=== PATIENT | female | born 1990 | race Caucasian/White ===

== ENCOUNTER 2016-02-28 01:54 | Emergency (ER) | payer OTHER ==
[~2016-02-28] VITALS: Ht 167.6 cm; Wt 85.6 kg
[~2016-02-28 01:54] MED LIST: Z.0.NO CURRENT MEDS
[2016-02-28 02:00] VITALS: BP 123/87; PULSE 110; RESP 16; TEMP 98.3; O2SAT 100
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
[2016-02-28] MEDS ORDERED: KETOROLAC TROMETHAMINE 60 MG/2 ML (IM) VIAL IM ONE (03:15)
[2016-02-28] MEDS ORDERED: IBUP-232 PO (03:44)
[2016-02-28] MEDS ORDERED: PERC5TAB12 PO (03:44)
--- NOTE | 2016-02-28 04:42 | RADHPO ---
EXAM DATE/TIME: 02/28/2016 03:13 [facility] COMPARISON: No previous studies available for comparison. INDICATIONS : Left lower leg pain. MEDICAL HISTORY : None. SURGICAL HISTORY : None. ENCOUNTER: Initial ACUITY: 2 days PAIN SCORE: 3/10 LOCATION: Left lower leg FINDINGS: Two view examination of the left tibia demonstrates no evidence of fracture or dislocation. Bony min eralization is normal. The soft tissue structures are intact. On the lateral view there is a questio nable density either on or just in the soft tissues along the plantar surface of the foot underneath the calcaneus. CONCLUSION: 1. No acute fracture or joint dislocation. 2. Questionable radiopaque linear foreign body either on or just in the skin along the plantar surfac e underneath the calcaneus. Correlate with physical exam. Ant Arreola MD on February 28, 2016 at 4:38 Board Certified Radiologist. This report was verified electronically.
--- NOTE | 2016-02-28 04:42 | RADHPO ---
EXAM DATE/TIME: 02/28/2016 03:15 [facility] COMPARISON: No previous studies available for comparison. INDICATIONS : Left ankle pain. MEDICAL HISTORY : None. SURGICAL HISTORY : None. ENCOUNTER: Initial ACUITY: 2 days PAIN SCORE: 4/10 LOCATION: Left ankle FINDINGS: Three view exam was performed of the left ankle. The bony structures are in normal alignment. No ev idence of fracture, dislocation, or soft tissue swelling. The ankle mortise is intact. No radiopaqu e foreign bodies are seen. Bony mineralization is normal. CONCLUSION: Normal examination for a patient of this age. Ant Arreola MD on February 28, 2016 at 4:41 Board Certified Radiologist. This report was verified electronically.
[2016-02-28 05:09] VITALS: BP 147/72
== END 2016-02-28 05:11 | disposition home or self-care (01) ==
LOC: PHED 01:54
DX: S90.02XA Contusion of left ankle, initial encounter (principal); S80.12XA Contusion of left lower leg, initial encounter; F17.210 Nicotine dependence, cigarettes, uncomplicated; V19.9XXA Pedal cyclist (driver) (passenger) injured in unspecified traffic accident, initial encounter; Y93.55 Activity, bike riding; Y92.9 Unspecified place or not applicable
CPT/HCPCS: 73590; 73610; 96372; 99283; J1885

== ENCOUNTER 2016-10-20 05:46 | Emergency (ER) | payer MEDICAID, OTHER ==
[~2016-10-20 05:46] MED LIST changes: +IBUP-232 PO; +PERC5TAB12 PO; -Z.0.NO CURRENT MEDS
--- NOTE | 2016-10-20 07:10 | PD ---
HPI Chief Complaint Possible labor she says her doctor told her to [facility] to be checked and she came here by mistake Date Seen: Oct 20, 2016 Time Seen: 07:00 Travel History International Travel<30 Days: No Contact w/Intl Traveler<30Days: No Known Affected Area: No History of Present Illness HPI This is 26-year-old white female at 37 weeks tomorrow who is followed by an outside physician and has not registered for here at [place] who presented here for evaluation of possible labor and being breech and wondering if there is always do a version, patient was supposed [facility] her doctor told her to go there but she mistakenly came here. She says she's having some contractions and was wondering if she was in labor and she knew she was breech. heart rate is reactive and dictated she is not norma regularly on the monitor. Weeks Gestation: 37 Para: 0 : 1 History Social History Alcohol Use: No Tobacco Use: No Substance Abuse: No Allergies-Medications (Allergen,Severity, Reaction): Coded Allergies: prochlorperazine (Unverified Allergy, Intermediate, 09/19/16) Home Meds Active Scripts Oxycodone-Acetaminophen (Percocet) 5-325 mg Tab, 1 TAB PO Q4H Y for PAIN, #15 TAB 0 Refills Prov:Valente Sinha MD 02/28/16 Ibuprofen (Ibuprofen) 600 Mg Tab, 600 MG PO TID for Arthritis Pain, #45 TAB 0 Refills Prov:Valente Sinha MD 02/28/16 Review of Systems General / Constitutional: No: Fever, Weight Gain, Chills, Other Eyes: No: Diploplia, Blurred Vision, Visual changes, Pain, Photophobia HENT: No: Headaches, Vertigo, Lightheadedness Cardiovascular: No: Irregular Rhythm, Chest Pain or Discomfort, Palpitations, Tachycardia, Syncope, Varicosities, Edema, Cyanosis Respiratory: No: Cough, Short of Breath, Other Gastrointestinal: No: Nausea, Vomiting, Diarrhea Genitourinary: No: Decreased Urinary Output, Oliguria Musculoskeletal: No: Limited ROM, Weakness, Cramping, Edema, Pain Skin: No Rash, No Itching, No Dryness, No Lumps, No Change in Pigmentation, No Change in Nails, No Alopecia, No Lesions Neurologic: No: Weakness, Dizziness, Syncope, Focal Abnormalities, Coordination Problem, Headache, Slurred Speech, Seizures Psychiatric: No: Depression, Suicidal Ideations, Homicidal Ideation Endocrine: No: Heat Intolerance, Cold Intolerance, Polydipsia, Polyuria, Other Physical Exam Narrative GENERAL: Well-nourished, obese patient. SKIN: Warm and dry. HEAD: Normocephalic and atraumatic. EYES: No scleral icterus. No injection or drainage. ENT: No nasal drainage noted. Mucous membranes pink. Airway patent. NECK: Supple, trachea midline. No JVD. CARDIOVASCULAR: Regular rate and rhythm without murmurs, gallops, or rubs. RESPIRATORY: Breath sounds equal bilaterally. No accessory muscle use. BREASTS: Bilateral exam showed no masses , no retractions, no nipple discharge. ABDOMEN/GI: Abdomen soft, non-tender, bowel sounds present, no rebound, no guarding Gravid to [37-] weeks size Fundal Height: [37-] GENITOURINARY: External Genitalia: intact and normal in appearance BUS glands: [-] Cervix: [-Posterior] Dilatation: [1-] Effacement: [-50] Station: [-3] Presentation: [Complete breech by ultrasound-] Membranes: [intact ] Uterine Contractions: [Occasional-] FHT's: Category: [1-] Baseline: [-133] Reactive: [yes-] Variability: [mod-] Decels: [-none] EXTREMITIES: No cyanosis or edema. BACK: Nontender without obvious deformity. No CVA tenderness. NEUROLOGICAL: Awake and alert. Motor and sensory grossly within normal limits. Five out of 5 muscle strength in all muscle groups. Normal speech. Data Data Labs Bedside ultrasound confirms patient's complete breech presentation MDM Interpretation(s) Patient is 26-year-old white female at 37 weeks tomorrow mistakenly presented here for evaluation of her breech and possible contractions. She was supposed to go to [facility] her doctor wanted her to go there he is an outside physician from this system and facility. She is not in labor at this time cervix 1 cm 50% -3 baby's incomplete breech presentation by bedside ultrasound heart rate tracing is reactive and she is only occasionally norma. Patient is not a good candidate for attempted version due to body habitus and the inability to palpate the fetus well Plan [place] discharged home and have her follow-up with her doctor in her hospital Diagnosis Diagnosis: Primary Impression: Uterine contractions during Additional Impression: Breech presentation Disposition: 01 DISCHARGE HOME Condition: Stable Liu Dominguez II, MD Oct 20, 2016 07:10
== END 2016-10-20 07:18 | disposition home or self-care (01) ==
LOC: HOBED 05:46
DX: O26.893 Other specified pregnancy related conditions, third trimester (principal); O32.1XX0 Maternal care for breech presentation, not applicable or unspecified; N85.8 Other specified noninflammatory disorders of uterus; Z3A.37 37 weeks gestation of pregnancy
CPT/HCPCS: 59025; 76815